=== PATIENT | male | born 1955 | race Caucasian/White ===

== ENCOUNTER 2019-01-17 06:35 | Day surgery (SDC) | payer MEDICARE, OTHER ==
[~2019-01-17] VITALS: Ht 182.9 cm; Wt 85.1 kg
[~2019-01-17 06:35] MED LIST: CENTRUM SILVER1 EAC2 PO; Calcitonin-Sal3.7 ML; FEOSOL PO; FERROUS SULFATE PO; FERSU220EL; FURO40; FURO40 PO; GLUC500 PO; Generlac10 GM/15 M PO; Inderal 20 mg T20 MG PO; LIDO700A20 TOP; Mobic15 MG PO; NADO40 PO; PANT40 PO; POTCHL10ER PO; POTCHL20ER PO; RIFA550T2 PO; SPIR25 PO; SPIR50 PO; TIZA4 PO; Vitamin B Comple1 EA PO; ZINC15 PO
--- NOTE | 2019-01-17 08:33 | NUR ---
01/17/19 0833 Britney Calixto IRRIGATION USED DURING COLONOSCOPY
--- NOTE | 2019-01-17 10:49 | NUR ---
01/17/19 1049 Keron Henson DISCHARGE INSTRUCTIONS REVIEWED WITH PT. PT TOLERATING PO FLUIDS WELL, VSS. VERY ANXIOUS TO BE DISCHARGED. ALL QUESETIONS ANSWERED. PT INFORMED HIS NEXT FOLLOW UP WOULD BE DETERMINED BY PATHOLOGY RESULTS AND TO EXPECT CALL FROM DR. CHRISTIE'S OFFICE.
== END 2019-01-17 09:35 | disposition home or self-care (01) ==
LOC: ORSCSDS 06:35
PROVIDERS: Internal Medicine Gastroenterology
PROC: 0DBL8ZX Excision of Transverse Colon, Via Natural or Artificial Opening Endoscopic, Diagnostic (ICD-10-PCS; principal; 2019-01-17 08:00)
PROC: 0DBK8ZX Excision of Ascending Colon, Via Natural or Artificial Opening Endoscopic, Diagnostic (ICD-10-PCS; principal; 2019-01-17 08:00)
PROC: 0DBN8ZX Excision of Sigmoid Colon, Via Natural or Artificial Opening Endoscopic, Diagnostic (ICD-10-PCS; principal; 2019-01-17 08:00)
PROC: 0DBH8ZX Excision of Cecum, Via Natural or Artificial Opening Endoscopic, Diagnostic (ICD-10-PCS; principal; 2019-01-17 08:00)
PROC: 0DJ08ZZ Inspection of Upper Intestinal Tract, Via Natural or Artificial Opening Endoscopic (ICD-10-PCS; principal; 2019-01-17 08:00)
DX: K74.60 Unspecified cirrhosis of liver (principal); I85.00 Esophageal varices without bleeding; K76.6 Portal hypertension; K31.89 Other diseases of stomach and duodenum; Z12.11 Encounter for screening for malignant neoplasm of colon; D12.0 Benign neoplasm of cecum; D12.2 Benign neoplasm of ascending colon; D12.3 Benign neoplasm of transverse colon; D12.5 Benign neoplasm of sigmoid colon; K64.8 Other hemorrhoids; D69.6 Thrombocytopenia, unspecified; Z13.810 Encounter for screening for upper gastrointestinal disorder; K21.9 Gastro-esophageal reflux disease without esophagitis; Z86.010 Personal history of colon polyps; Z79.899 Other long term (current) drug therapy
CPT/HCPCS: 88305; J0461; J2405; J2704; J7120

== ENCOUNTER → 2019-08-24 | Outpatient (CLI) | payer MEDICARE, OTHER ==
[2019-08-24 08:18] LABS: BASOPHILS ABSOLUTE AUTO 0.04 K/mm3 (0.00-0.23); BASOPHILS PERCENT AUTO 1 % (0-2); EOSINOPHILS ABSOLUTE AUTO 0.15 K/mm3 (0.00-0.68); EOSINOPHILS PERCENT AUTO 4 % (0-6); Hematocrit 41.1 % (37.0-53.0); IMMATURE GRAN ABSOLUTE AUTO 0.02 K/mm3 (0.00-0.10); IMMATURE GRAN PERCENT AUTO 1 % (0-1); LYMPHOCYTES ABSOLUTE AUTO 0.73 K/mm3 (0.84-5.20); LYMPHOCYTES PERCENT AUTO 17 % (21-46); MONOCYTES ABSOLUTE AUTO 0.44 K/mm3 (0.16-1.47); MONOCYTES PERCENT AUTO 11 % (4-13); Mean Corpuscular HGB 32.6 pg (26.0-34.0); Mean Corpuscular HGB Conc 34.1 g/dL (31.5-36.5); Mean Corpuscular Volume 96 fL (80-100); NEUTROPHILS ABSOLUTE AUTO 2.83 K/mm3 (1.96-9.15); NEUTROPHILS PERCENT AUTO 67 % (41-73); RDW Coefficient Variation 14.4 % (11.7-14.2); RDW Standard Deviation 50.1 fL (35.1-46.3); White Blood Cell Count 4.21 K/mm3 (4.00-11.30)
[2019-08-24 08:38] LABS: Alanine Aminotransfer (ALT/SGP 19 U/L (12-78); Albumin, Blood 3.5 g/dL (3.4-5.0); Albumin/Globulin Ratio 0.9 (0.8-1.8); Alk Phos 73 U/L (40-126); Anion Gap 9 mmol/L (6-16); Aspartate Aminotrans (AST/SGOT 33 U/L (12-37); Bilirubin, Total 1.6 mg/dL (0.1-1.0); Blood Urea Nitrogen 18 mg/dL (8-24); Bun/Creatinine Ratio 17.1 (12.0-20.0); CO2, Blood 29 mmol/L (21-32); CPK Creatine Kinase 44 U/L (39-308); Calcium, Blood 8.8 mg/dL (8.5-10.1); Chloride, Blood 105 mmol/L (98-108); Creatinine, Blood 1.05 mg/dL (0.60-1.20); Free Thyroxine 0.97 ng/dL (0.70-1.60); Globulin, Blood 4.1 g/dL (2.2-4.0); Glomerular Filtration Rate >60 (60-); Glucose, Blood 106 mg/dL (70-99); Potassium, Blood 4.2 mmol/L (3.5-5.5); Sodium, Blood 143 mmol/L (136-145); Total Protein, Blood 7.6 g/dL (6.4-8.2)
[2019-08-24 08:47] LABS: Troponin I <0.017 ng/mL (0.000-0.040)
[2019-08-24 09:28] LABS: Platelet Count 96 K/mm3 (150-400)
[2019-08-24 09:29] LABS: Mean Platelet Volume 11.6 fL (9.1-12.4)
== END | disposition home or self-care (01) ==
LOC: LAB SHORT 08:11 → LAB EV 08:11
PROVIDERS: General Practice
DX: R06.00 Dyspnea, unspecified (principal); R53.81 Other malaise
CPT/HCPCS: 80053; 82550; 83880; 84439; 84443; 84484; 85025; 85379

== ENCOUNTER → 2020-02-17 | Outpatient (CLI) | payer MEDICARE, OTHER | LOC: LAB SHORT 10:39 → LAB EV 10:39 | DX: R05 Cough (principal); Z20.828 Contact with and (suspected) exposure to other viral communicable diseases | CPT/HCPCS: U0003 ==